=== PATIENT | female | born 1945 | race Caucasian/White ===

== ENCOUNTER 2023-08-10 11:00 | Outpatient (RCR) | payer MEDICARE, OTHER, SELFPAY ==
--- NOTE | 2023-06-30 12:37 | PTOPEVAL1 ---
Assessment and note entered by Manuela Mccall, PT Evaluation Information Assessment Status Evaluation Diagnosis pain in left leg Therapy conditions weakness stiffness LLE abnormal alignment Subjective Information Pain is not always constant. First time happened was [place] the post[place] the stairs and got a pain in the outside of left leg, and sat down on the steps. hobbled to her car after that . Sometimes doesn't bother during the day, or every day, and sometimes bothers at night Today leaned over to get a sock that fell and got the pain again. Is sharp when it happens but is dull currently. Is sharp enough wants to sit down until it goes away. Pt is still able to do things but doesn't know when it's going to happen, but when it does is afraid is going to fall. Likes to walk but gave this up because the leg bothered her. Has a stationary bike and is able to do this without tension without pain. Assessment PT Clinical Summary Pt reports having on and off pain in her left knee for the past 3 months. States pain has no trend, is sharp in nature when it occurs and then will ache for a time after the sharp shooting occurs. Pt evaluation shows decreased flexibility, decreased left hip flexion, decreased strength, and abnormal sit>stand kinematics suggestive of poor knee and hip stability. Pt will benefit from physical therapy to address deficits, decrease pain and return to PLOF. Plan of Care Interventions Electrical Stimulation,Hot Pack/Cold Pack,Manual Therapy,Neuro Re-education,Therapeutic Activities, Therapeutic Exercise,Self-Care/Home Management PT Services Indicated Yes Treatment Frequency and 1-2x weekly x 10- visits Duration These treatments will address the objective and functional deficits as defined above. The patient will be advanced safely and appropriately in order for the patient to progress towards his/her prior level of function. Additional exercises will be introduced and as well as a comprehensive home exercise program upon discharge, if needed, ?to ensure carryover of functional gains achieved in the clinic. This treatment plan has been reviewed and agreement upon by the patient.
--- NOTE | 2023-06-30 12:38 | OPREHPOC ---
Outpatient Therapy Plan of Care This is a Multidisciplinary Plan of Care that may contain components documented by all disciplines (PT, OT, and ST.) PT Problem 1 PT Problem #1 Knowledge Deficit PT Goal 1 Goal Pt will be independent in HEP Pt will verbalize understanding of diagnosis and prognosis Target Visit 6 PT Problem 2 PT Problem #2 Impaired Range of Motion PT Goal 1 Goal Pt will demo passive ROM of left hip to equal right hip Target Visit 6 PT Problem 3 PT Problem #3 Impaired Flexibility PT Goal 1 Goal Pt will demo improved quad length to 100 degrees knee flexion in prone Target Visit 5 PT Goal 2 Goal Pt will demo hamstring length from 90/90 LLE of 60 degrees or greater Target Visit 10 PT Problem 4 PT Problem #4 Impaired Strength PT Goal 1 Goal Pt will demo strength of 3+/5 in all tested planes Target Visit 10 PT Goal 2 Goal Pt will demo strength of 4/5 in all tested planes Target Visit 20
--- NOTE | 2023-08-10 11:40 | PTOPDC ---
Assessment and note entered by Manuela Mccall, PT Assessment Status Discharge Diagnosis pain in left leg Subjective Information Pt states hasn't returned to walking recreationally, but walks in the grocery store without issue. Hsa not had any sharp pains recently. Stairs are doing fine . Has not felt like she is going to fall either. perceived improvement: 98% Reported Pain Level Pain Score 0: Self Report Additional Pain Score Comments Pt had the one instance of 10/10 recently but since last therapy session this has completely resolved Assessment PT Clinical Summary Pt attended therapy consistently for left leg pain which appeared to be iliotibial band related. Pt reports feeling 98% improved since starting therapy. Had once instance during plan of care in which she had greatly increased pain which appeared related to pelvic alignment that resolved after last therapy session. Other than that her highest pain level she rated at a 2/10. She reports no longer having sharp pain instances or fear of falling from this, is able to perform stairs, and walk long periods shopping without pain. Pt has met 5/6 goals and 6th goal is partially met. She has been educated in her updated HEP to continue and maintain improvement as well as when to return to therapy in the future if is needed. Thus patient is being discharged from [facility] for completion of plan of care. Plan of Care PT Services Indicated No
== END 2023-08-16 11:15 | disposition home or self-care (01) ==
LOC: ANHHIPT 11:00
PROVIDERS: PCP Physician Assistant Medical; Visit Provider Physician Assistant Medical
DX: M79.605 Pain in left leg (principal)
CPT/HCPCS: 97110; 97112; 97140; 97162; 97530; 97750